=== PATIENT | female | born 1985 | race Caucasian/White ===

== ENCOUNTER 2018-02-22 07:04 | Day surgery (SDC) | payer BC ==
[~2018-02-22 07:04] MED LIST: DESFLURANE 15 MIN
[2018-02-22] MEDS ORDERED: LIDOCAINE 1%/EPI 30 ML INJ (07:52)
[2018-02-22] MEDS ORDERED: ROPIVACAINE 0.5 % 30 ML VIAL (09:26)
[2018-02-22] MEDS ORDERED: FENTAnyl 50 MCG/ML VIAL (09:26)
[2018-02-22] MEDS ORDERED: ALBUTEROL 0.083% (NEB) 2.5 MG/3 ML AMP HHN (09:30)
[2018-02-22] MEDS ORDERED: OXYCODONE/ACETAMINOPHEN (5/325) TAB PO (09:30)
[2018-02-22] MEDS ORDERED: METOCLOPRAMIDE 10 MG INJ IV (09:30)
[2018-02-22] MEDS ORDERED: FENTAnyl 50 MCG/ML VIAL IV ×2 (09:30)
[2018-02-22] MEDS ORDERED: HYDROmorphONE 1 MG/5 ML IV SYRINGE IV (09:30)
[2018-02-22] MEDS ORDERED: LIDOCAINE 100 MG SYRINGE (09:50)
[2018-02-22] MEDS ORDERED: SUCCINYLCHOLINE CHLORIDE 100 MG/5 ML SYG IV (09:50)
[2018-02-22] MEDS ORDERED: ROCURONIUM 50 MG INJ (09:50)
[2018-02-22] MEDS ORDERED: NEOSTIGMINE 3 MG/3 ML SYRINGE (09:50)
[2018-02-22] MEDS ORDERED: PROPOFOL 20 ML (09:50)
[2018-02-22] MEDS ORDERED: CEFAZOLIN 1 GM INJ (09:50)
[2018-02-22] MEDS ORDERED: GLYCOPYRROLATE 1 MG INJ (09:50)
[2018-02-22] MEDS ORDERED: ONDANSETRON 4 MG INJ IV (12:00)
[2018-02-22] MEDS ORDERED: ACETAMINOPHEN 325 MG TAB PO (12:00)
[2018-02-22] MEDS: DIPHENHYDRAMINE 50 MG INJ IV (12:27)
[2018-02-22] MEDS: ONDANSETRON 4 MG INJ IV (12:27)
[2018-02-22] MEDS: MEPERIDINE 25 MG INJ IV (12:27)
[2018-02-22] MEDS: HYDROmorphONE 1 MG/5 ML IV SYRINGE IV ×4 (12:28→13:02)
[2018-02-22 12:43] LABS: ADD MAN DIFF? NO; BASOPHIL # 0.1 10^3/ul (0.0-0.1); BASOPHILS % 0.4 % (0.0-2.0); EOSINOPHILS # 0.1 10^3/ul (0.0-0.5); EOSINOPHILS % 0.3 % (0.0-7.0); HEMATOCRIT 34.8 % (37.0-47.0); HEMOGLOBIN 11.3 g/dl (12.0-16.0); LYMPHOCYTES % 19.2 % (15.0-51.0); MEAN CORPUSCULAR HEMOGLOBIN 28.5 pg (29.0-33.0); MEAN CORPUSCULAR HGB CONC 32.5 g/dl (32.0-37.0); MEAN CORPUSCULAR VOLUME 87.9 fl (82.0-101.0); MEAN PLATELET VOLUME 10.4 fl (7.4-10.4); MONOCYTE # 0.7 10^3/ul (0.3-0.9); MONOCYTES % 3.4 % (0.0-11.0); NEUTROPHIL # 15.8 10^3/ul (1.6-7.5); NEUTROPHILS % 76.1 % (39.0-77.0); PLATELET COUNT 272 10^3/UL (140-415); RED BLOOD COUNT 3.96 10^6/ul (4.20-5.40); RED CELL DISTRIBUTION WIDTH 12.4 % (11.5-14.5)
[2018-02-22 12:43] LABS: WHITE BLOOD COUNT 20.8 10^3/ul (4.8-10.8)
[2018-02-22 12:45] LABS: ANION GAP 10 (5-13); Estimated GFR > 60 mL/min (>60)
[2018-02-22 12:48] LABS: CARBON DIOXIDE 21 mmol/L (21-31); CHLORIDE 110 mmol/L (97-110); GLUCOSE 114 mg/dl (70-220); HOLD TRANSMISSIONS 1; SODIUM 141 mmol/L (135-144)
[2018-02-22 12:49] LABS: BLOOD UREA NITROGEN 11 mg/dl (7-20); CREATININE 0.45 mg/dl (0.44-1.00)
[2018-02-22 12:55] LABS: CALCIUM 7.7 mg/dl (8.4-10.2)
[2018-02-22] MEDS ORDERED: MEPERIDINE 25 MG INJ (13:34)
[2018-02-22] MEDS: LACTATED RINGER'S 1,000 ML IV ×2 (14:46→22:43)
[2018-02-22] MEDS: HYDROCODONE/APAP (5/325) TAB PO (22:51)
[2018-02-23] MEDS: HYDROCODONE/APAP (5/325) TAB PO ×2 (04:00→11:08)
[2018-02-23 05:21] LABS: ADD MAN DIFF? NO
[2018-02-23 05:25] LABS: WHITE BLOOD COUNT 10.5 10^3/ul (4.8-10.8)
[2018-02-23 05:25] LABS: BASOPHILS % 0.3 % (0.0-2.0); EOSINOPHILS % 0.4 % (0.0-7.0); HEMATOCRIT 30.9 % (37.0-47.0); HEMOGLOBIN 10.3 g/dl (12.0-16.0); LYMPHOCYTES # 2.3 10^3/ul (0.8-2.9); LYMPHOCYTES % 22.2 % (15.0-51.0); MEAN CORPUSCULAR HEMOGLOBIN 28.6 pg (29.0-33.0); MEAN CORPUSCULAR HGB CONC 33.3 g/dl (32.0-37.0); MEAN CORPUSCULAR VOLUME 85.8 fl (82.0-101.0); MEAN PLATELET VOLUME 10.5 fl (7.4-10.4); MONOCYTES % 9.4 % (0.0-11.0); NEUTROPHIL # 7.1 10^3/ul (1.6-7.5); NEUTROPHILS % 67.5 % (39.0-77.0); PLATELET COUNT 213 10^3/UL (140-415); RED CELL DISTRIBUTION WIDTH 12.4 % (11.5-14.5)
[2018-02-23 05:42] LABS: ANION GAP 6 (5-13); BLOOD UREA NITROGEN 3 mg/dl (7-20); CALCIUM 7.9 mg/dl (8.4-10.2); CARBON DIOXIDE 23 mmol/L (21-31); CHLORIDE 110 mmol/L (97-110); CREATININE 0.46 mg/dl (0.44-1.00); Estimated GFR > 60 mL/min (>60); GLUCOSE 92 mg/dl (70-220); POTASSIUM 3.7 mmol/L (3.5-5.1); SODIUM 139 mmol/L (135-144)
[2018-02-23] MEDS: LACTATED RINGER'S 1,000 ML IV (07:59)
== END 2018-02-23 13:30 | disposition home or self-care (01) ==
LOC: SDS 07:04 → REC 13:41 → SDS 07:04 → REC 11:59 → MS1 13:41 → SDS 02-23 13:30
DX: N80.9 Endometriosis, unspecified (principal); N73.6 Female pelvic peritoneal adhesions (postinfective)
CPT/HCPCS: 49204; 80048; 84703; 85025; 86850; 86900; 86901; 86920; 87086; 88305; 90686